=== PATIENT | male | born 1955 | race Caucasian/White ===

== ENCOUNTER 2020-09-18 13:27 | Outpatient (CLI) | payer OTHER | END 2020-09-18 23:59 | disposition home or self-care (01) | LOC: CARD DIAG 13:27 | PROVIDERS: ATTEND Orthopaedic Surgery | DX: I08.0 Rheumatic disorders of both mitral and aortic valves (principal); I25.10 Atherosclerotic heart disease of native coronary artery without angina pectoris | CPT/HCPCS: 93306 ==